=== PATIENT | male | born 1940 | race Caucasian/White ===

== ENCOUNTER 2021-02-28 14:28 | Day surgery (SDC) | payer MEDICARE, OTHER ==
[2021-02-28] MEDS ORDERED: Xylocaine 1% Vial 30 ML PF IJ ONE (14:29)
[2021-02-28] MEDS ORDERED: Decadron 4 MG INJ IV ONE (14:29)
[2021-02-28] MEDS ORDERED: BUPIVACAINE 0.5% VIAL IJ ONE (14:29)
--- NOTE | 2021-02-28 18:07 | XRAY ---
Indication: Right piriformis injection. Intraoperative fluoroscopy provided for 24 seconds. Single digital spot image submitted for interpretation demonstrates posterior needle tip projecting over the expected right piriformis muscle. Correlate with intraoperative findings/report.
--- NOTE | 2021-03-01 09:04 | XRAY ---
24 seconds fluoroscopy time in surgery for injection of the right piriformis muscle.
== END 2021-02-28 17:00 | disposition home or self-care (01) ==
LOC: SDC-PAIN 14:28
PROVIDERS: ATTEND Psychiatry & Neurology Pain Medicine
DX: M79.18 Myalgia, other site (principal); I10 Essential (primary) hypertension; I25.10 Atherosclerotic heart disease of native coronary artery without angina pectoris; E78.5 Hyperlipidemia, unspecified; Z79.899 Other long term (current) drug therapy
CPT/HCPCS: 20552; 72020; 77002; J1100; J2001; Q9966

== ENCOUNTER 2021-09-05 14:28 | Day surgery (SDC) | payer MEDICARE, OTHER ==
[2021-09-05] MEDS ORDERED: XYLOCAINE-MPF 1% 5ML SDV IJ ONE (14:29)
[2021-09-05] MEDS ORDERED: Decadron 4 MG INJ IV ONE (14:29)
--- NOTE | 2021-09-05 21:33 | XRAY ---
Indication: Right piriformis injection Intraoperative fluoroscopy provided for 16 seconds. Single digital spot image submitted for interpretation demonstrates posterior needle tip projecting over the right piriformis muscle. Small amount of contrast injected for needle tip placement. Correlate with intraoperative findings/report.
--- NOTE | 2021-09-06 09:13 | XRAY ---
16 seconds of fluoroscopy was used in surgery for a right piriformis injection.
== END 2021-09-05 18:10 | disposition home or self-care (01) ==
LOC: SDC-PAIN 14:28
PROVIDERS: ATTEND Psychiatry & Neurology Pain Medicine
DX: M79.18 Myalgia, other site (principal); I10 Essential (primary) hypertension; Z79.899 Other long term (current) drug therapy
CPT/HCPCS: 20553; 73502; 77002; J1100; Q9966